=== PATIENT | male | born 1935 | race Caucasian/White ===

== ENCOUNTER 2018-05-03 13:16 | Emergency (ER) | payer MEDICARE, BC ==
[2018-05-03 13:32] VITALS: BP 149/63
[2018-05-03] MEDS ORDERED: Doxycycline 100 MG Cap PO ONE (13:41)
--- NOTE | 2018-05-03 14:50 | ER ---
SUBJECTIVE: The patient is an 82-year-old male, who has been at his normal baseline, but he found a tick on the back of his left lower leg, and he pulled it off yesterday morning. He states it is now getting red and was having some itching and some discomfort. It is not painful now. No other calf tenderness. No real swelling. No shortness of breath. No fevers. No other issues. He was seen in the clinic, and they apparently sent him to the ER for further evaluation. PAST MEDICAL HISTORY: Significant for hypothyroidism, hypertension, hyperlipidemia, osteoarthritis, impaired vision, and hip replacement. CURRENT MEDICATIONS: Include: 1. Synthroid 50 mcg p.o. daily. 2. Metoprolol 25 mg p.o. daily. 3. Lipitor 20 mg p.o. at bedtime. ALLERGIES: No allergies. SOCIAL HISTORY: No tobacco, alcohol, or drugs. REVIEW OF SYSTEMS: No fevers. No chills. No chest pain or shortness of breath. No new bowel or bladder changes. He does have the redness where he had the tick bite on his posterior left lower leg. No other issues. OBJECTIVE: Vital Signs: Stable. General: He is afebrile. No distress. Talkative, smiling. A and O x3. No respiratory distress. Good historian. Large male, appears his stated age. Extremities: Focused examination of the lower extremities shows an area of redness about quarter size to the back of the left calf area. There is no tick at this place now, the patient states he pulled it off. I do not see any foreign body. No lacerations or abrasions. It is mildly warm and mildly infected, there is no induration and no abscesses. There is nothing to mirta or I and D at this point. There is no drainage. There is not a target lesion at this point. He has full range of motion of the foot. No compartment syndrome. ASSESSMENT AND PLAN: Tick bite with infection to the left posterior lower extremity. PLAN: He was given tablet of doxycycline in the emergency room. He was given a prescription for doxycycline as well. He is advised to elevate his legs. He can apply moist warm packs. Follow up very closely and get it recheck by PCP early this next week. Fill prescription today for doxycycline, take Tylenol or ibuprofen for discomfort. Return for emergent issues. [facility] /[id number]
== END 2018-05-03 14:06 | disposition home or self-care (01) ==
LOC: DL.ED 13:16
DX: S80.862A Insect bite (nonvenomous), left lower leg, initial encounter (principal); I10 Essential (primary) hypertension; E03.9 Hypothyroidism, unspecified; Z79.899 Other long term (current) drug therapy; W57.XXXA Bitten or stung by nonvenomous insect and other nonvenomous arthropods, initial encounter
CPT/HCPCS: 36415; 87040; 99283; A9270

== ENCOUNTER 2018-06-30 05:02 | Emergency (ER) | payer MEDICARE, BC ==
[2018-06-30 04:46] VITALS: BP 159/65
--- NOTE | 2018-06-30 05:00 | EDM.PDOC ---
ED HPI GENERAL MEDICAL PROBLEM - General Chief Complaint: Lower Extremity Injury/Pain Stated Complaint: AMBULANCE-FELL Time Seen by Provider: 06/30/18 04:35 Source of Information: Reports: Patient, EMS History Limitations: Reports: No Limitations - History of Present Illness INITIAL COMMENTS - FREE TEXT/NARRATIVE: ED via [facility]. Patient reports falling when getting back to bed approximately 1am. Called neighbor around 4am. States turning and knee gave out. Recent total knee replacement on 06/28. No loss of consciousness. Denies other injury. Rates pain 01/26. On no aspirin or other blood thinners. EMS noted dressing saturated and oozing beneath. Pain mainly behind right knee Right Knee Pain Score (Numeric/FACES): 3 - Related Data Allergies Allergy/AdvReac Type Severity Reaction Status Date / Time red dye Allergy Dizziness Verified 06/30/18 04:46 Home Meds: Home Meds Levothyroxine [Synthroid] 50 mcg PO DAILY 03/08/16 [History] Metoprolol Tartrate 25 mg PO DAILY 05/03/18 [History] atorvaSTATin [Lipitor] 20 mg PO BEDTIME 05/03/18 [History] oxyCODONE 5 mg PO Q4HR PRN 06/30/18 [History] Past Medical History HEENT History: Reports: Impaired Vision Other HEENT History: wears glasses Cardiovascular History: Reports: High Cholesterol, Hypertension Respiratory History: Reports: None Gastrointestinal History: Reports: None Genitourinary History: Reports: None Neurological History: Reports: None Psychiatric History: Reports: None Endocrine/Metabolic History: Reports: Hypothyroidism Hematologic History: Reports: None Immunologic History: Reports: None Oncologic (Cancer) History: Reports: None Dermatologic History: Reports: None - Infectious Disease History Infectious Disease History: Reports: Chicken Pox - Past Surgical History Head Surgeries/Procedures: Reports: None Musculoskeletal Surgical History: Reports: Hip Replacement, Knee Replacement Social & Family History - Tobacco Use Smoking Status *Q: Never Smoker Second Hand Smoke Exposure: No - Caffeine Use Caffeine Use: Reports: Soda - Recreational Drug Use Recreational Drug Use: No Review of Systems - Review of Systems Review Of Systems: See Below Constitutional: Reports: No Symptoms Eyes: Reports: Glasses Ears: Reports: No Symptoms Nose: Reports: No Symptoms Mouth/Throat: Reports: No Symptoms Respiratory: Reports: No Symptoms Cardiovascular: Reports: No Symptoms Genitourinary: Reports: No Symptoms Musculoskeletal: Reports: Joint Pain (right knee) Skin: Reports: Wound Neurological: Reports: No Symptoms. Denies: Headache, Numbness, Seizure, Syncope ED EXAM, GENERAL - Physical Exam Exam: See Below Exam Limited By: No Limitations General Appearance: Alert, No Apparent Distress, Obese Eye Exam: Bilateral Eye: EOMI, PERRL Ears: Normal External Exam Ear Exam: Bilateral Ear: Auricle Normal Nose: Normal Inspection Throat/Mouth: Normal Inspection, Normal Voice Head: Atraumatic, Normocephalic Neck: Normal Inspection, Full Range of Motion. No: Tender Lateral, Tender Midline Respiratory/Chest: No Respiratory Distress, Lungs Clear Cardiovascular: Normal Peripheral Pulses, Regular Rate, Rhythm GI/Abdominal: Normal Bowel Sounds, Soft Back Exam: Normal Inspection Extremities: Leg Pain (right knee recent surgical incision, caesar intackt, swollen bruised. surgical dressing saturated ). No: Normal Range of Motion Neurological: Alert, Oriented, Normal Cognition Psychiatric: Normal Affect, Normal Mood Skin Exam: Warm, Ecchymosis (right knee), Wound/Incision (right anterior knee surgical incision site). No: Increased Warmth Course - Vital Signs Last Recorded V/S: Last Vital Signs Temp 98.2 F 06/30/18 04:35 Pulse 99 06/30/18 04:35 Resp 18 06/30/18 04:35 BP 159/65 H 06/30/18 04:35 Pulse Ox 93 L 06/30/18 04:35 - Orders/Labs/Meds Orders: Active Orders 24 hr Category Date Time Status EKG 12 Lead [EKG Documentation Completion] [RC] URGENT Care 06/30/18 05:46 Active Labs: Laboratory Tests 06/30/18 06/30/18 06/30/18 Range/Units 05:10 05:10 05:10 WBC 13.2 H (5.0-10.0) 10^3/uL RBC 3.94 L (4.6-6.2) 10^6/uL Hgb 12.2 L D (14.0-18.0) g/dL Hct 37.7 L (40.0-54.0) % MCV 95.7 D (80-100) fL MCH 31.0 (27.0-34.0) pg MCHC 32.4 L (33.0-35.0) g/dL Plt Count 155 (150-450) 10^3/uL Neut % (Auto) 66.1 (42.2-75.2) % Lymph % (Auto) 20.9 (20.5-50.1) % [place] % (Auto) 12.6 H (2-8) % Eos % (Auto) 0.2 L (1.0-3.0) % Baso % (Auto) 0.2 (0.0-1.0) % PT 10.8 (9.0-12.0) SEC INR 1.1 (0.9-1.2) Sodium 136 (135-145) mmol/L Potassium 4.1 (3.6-5.0) mmol/L Chloride 102 (101-111) mmol/L Carbon Dioxide 26.0 (21.0-31.0) mmol/L Anion Gap 12.1 BUN 18 (7-18) mg/dL Creatinine 0.9 (0.6-1.3) mg/dL Est Cr Clr Drug Dosing 64.21 mL/min Estimated GFR (MDRD) > 60 BUN/Creatinine Ratio 20.00 Glucose 124 H (74-105) mg/dL Calcium 8.4 (8.4-10.2) mg/dl Total Bilirubin 1.0 (0.2-1.0) mg/dL AST 115 H (10-42) IU/L ALT 18 (10-60) IU/L Alkaline Phosphatase 53 (42-121) IU/L CK-MB (CK-2) (0.4-4.7) ng/mL Troponin I 0.19 H* (0.00-0.02) ng/ml Total Protein 6.4 L (6.7-8.2) g/dl Albumin 3.1 L (3.2-5.5) g/dl Globulin 3.3 Albumin/Globulin Ratio 0.94 Blood Type Gel Antibody Screen 06/30/18 06/30/18 Range/Units 05:10 05:10 WBC (5.0-10.0) 10^3/uL RBC (4.6-6.2) 10^6/uL Hgb (14.0-18.0) g/dL Hct (40.0-54.0) % MCV (80-100) fL MCH (27.0-34.0) pg MCHC (33.0-35.0) g/dL Plt Count (150-450) 10^3/uL Neut % (Auto) (42.2-75.2) % Lymph % (Auto) (20.5-50.1) % [place] % (Auto) (2-8) % Eos % (Auto) (1.0-3.0) % Baso % (Auto) (0.0-1.0) % PT (9.0-12.0) SEC INR (0.9-1.2) Sodium (135-145) mmol/L Potassium (3.6-5.0) mmol/L Chloride (101-111) mmol/L Carbon Dioxide (21.0-31.0) mmol/L Anion Gap BUN (7-18) mg/dL Creatinine (0.6-1.3) mg/dL Est Cr Clr Drug Dosing mL/min Estimated GFR (MDRD) BUN/Creatinine Ratio Glucose (74-105) mg/dL Calcium (8.4-10.2) mg/dl Total Bilirubin (0.2-1.0) mg/dL AST (10-42) IU/L ALT (10-60) IU/L Alkaline Phosphatase (42-121) IU/L CK-MB (CK-2) 14.00 H (0.4-4.7) ng/mL Troponin I (0.00-0.02) ng/ml Total Protein (6.7-8.2) g/dl Albumin (3.2-5.5) g/dl Globulin Albumin/Globulin Ratio Blood Type A POSITIVE Gel Antibody Screen Negative Meds: Medications Discontinued Medications Generic Name Dose Route Start Last Admin Trade Name Rena PRN Reason Stop Dose Admin Hydromorphone HCl 1 mg 06/30/18 05:43 06/30/18 05:50 Dilaudid IVPUSH 06/30/18 05:44 1 mg ONETIME ONE Administration Ondansetron HCl 4 mg 06/30/18 05:43 06/30/18 05:48 Zofran IV 06/30/18 05:44 4 mg ONETIME ONE Administration - Radiology Interpretation Free Text/Narrative:: Name: JAMILA SINGER Age: 82Years M Date: 06/30/2018 SSN: -- : [id number] Study: XR KNEE 3 VIEWS Requesting Physician: FISH IZAGUIRRE Images: 2 Addl Studies: Provided Clinical History: Contrast: Contrast Medium: Contrast Amount: Contrast Method: CONFIDENTIALITY STATEMENT This report is intended only for use by the referring physician, and only in accordance with law. If you received this in error, call [phone]. Page 1 of 1 EXAM: XR Right Knee, 3 views CLINICAL HISTORY: 82 years old, male; Signs and symptoms; Other: Knee replacement sunday--fell tonite/pain TECHNIQUE: Three views of the right knee. COMPARISON: No relevant prior studies available. FINDINGS: Bones/joints: Status post total knee replacement Small suprapatellar joint effusion No acute fracture. No dislocation. Soft tissues: Unremarkable. IMPRESSION: Status - Re-Assessments/Exams Free Text/Narrative Re-Assessment/Exam: 06/30/18 05:[address] Manjeet Rodríguez. Recommendation await final radiology report, if negative trial of weight bearing, if unable, CT. If [place] then recommend follow up sooner than usual 2 week follow up. Lab results in with elevated troponin. 06/30/18 07:00, Spouse arrived, Now reports, patient might have passed out with fall or immediately after. Patient continues to report did not TX stable LRAS. Scant drainage from mid incision wound. Departure - Departure Time of Disposition: 06:55 Disposition: DC/Tfer to Acute Hospital 02 Condition: Undetermined Clinical Impression: Elevated troponin S/P total knee replacement Qualifiers: Laterality: right Qualified Code(s): Z96.651 - Presence of right artificial knee joint Fall Qualifiers: Encounter type: initial encounter Qualified Code(s): W19.XXXA - Unspecified fall, initial encounter - Discharge Information Forms: ED Department Discharge - My Orders Last 24 Hours: My Active Orders 06/30/18 05:46 EKG 12 Lead [EKG Documentation Completion] [RC] URGENT - Assessment/Plan Last 24 Hours: My Active Orders 06/30/18 05:46 EKG 12 Lead [EKG Documentation Completion] [RC] URGENT
[2018-06-30 05:38] LABS: ANION GAP 12.1; CHLORIDE,CL 102 mmol/L (101-111); SODIUM,NA 136 mmol/L (135-145)
[2018-06-30] MEDS ORDERED: Ondansetron 4 MG/2 ML SDV IV ONE (05:43)
[2018-06-30] MEDS ORDERED: HYDROmorphone 0.5 MG/0.5 ML Syringe IVPUSH ONE (05:43)
--- NOTE | 2018-07-03 09:10 | EKG ---
06/30/2018- JAMILA SINGER - FINDINGS: A 12-lead EKG shows normal sinus rhythm with ventricular bigeminy and right bundle-branch block. No significant ST elevation or ST depression noted on this 12-lead EKG. [facility] /[id number]
== END 2018-06-30 06:55 ==
LOC: DL.ED 05:02
DX: T84.89XA Other specified complication of internal orthopedic prosthetic devices, implants and grafts, initial encounter (principal); I10 Essential (primary) hypertension; E78.00 Pure hypercholesterolemia, unspecified; E03.9 Hypothyroidism, unspecified; Z96.651 Presence of right artificial knee joint; Z91.09 Other allergy status, other than to drugs and biological substances; Z79.899 Other long term (current) drug therapy; W19.XXXA Unspecified fall, initial encounter
CPT/HCPCS: 36415; 73560; 80053; 82553; 84484; 85025; 85610; 86850; 86900; 86901; 93005; 93010; 96374; 96375; 99284; 99285; J1170; J2405

== ENCOUNTER 2018-07-04 10:19 | Inpatient (IN) | payer MEDICARE, BC ==
[2018-07-04] MEDS ORDERED: Bisacodyl 10 MG Supp RECTAL PRN (14:31)
[2018-07-04] MEDS ORDERED: oxyCODONE 5 MG Tab PO PRN (14:37)
[2018-07-04] MEDS: Aspirin 325 MG Tab PO SCH (21:04)
[2018-07-04] MEDS: Acetaminophen 325 MG Tab PO PRN (21:04)
[2018-07-04] MEDS: atorvaSTATin 20 MG Tab PO SCH (21:04)
[2018-07-05] MEDS: Levothyroxine 100 MCG Tab PO SCH (06:27)
[2018-07-05] MEDS: Acetaminophen 325 MG Tab PO PRN (06:27)
[2018-07-05] MEDS: Metoprolol Tartrate 25 MG Tab PO SCH (09:39)
[2018-07-05] MEDS: Aspirin 325 MG Tab PO SCH ×2 (09:39→20:13)
[2018-07-05] MEDS: Acetaminophen 500 MG Tab PO SCH ×3 (09:40→20:13)
[2018-07-05] MEDS: Docusate Sodium 100 MG Cap PO SCH ×2 (09:46→20:12)
[2018-07-05] MEDS: atorvaSTATin 20 MG Tab PO SCH (20:12)
[2018-07-06] MEDS: Levothyroxine 100 MCG Tab PO SCH (05:19)
[2018-07-06] MEDS: Acetaminophen 500 MG Tab PO SCH ×3 (08:50→21:28)
[2018-07-06] MEDS: Docusate Sodium 100 MG Cap PO SCH ×2 (08:50→21:28)
[2018-07-06] MEDS: Metoprolol Tartrate 25 MG Tab PO SCH (08:50)
[2018-07-06] MEDS: Aspirin 325 MG Tab PO SCH ×2 (08:51→21:28)
[2018-07-06] MEDS: atorvaSTATin 20 MG Tab PO SCH (21:30)
[2018-07-07] MEDS: Levothyroxine 100 MCG Tab PO SCH (06:33)
[2018-07-07] MEDS: Acetaminophen 500 MG Tab PO SCH ×3 (08:50→20:56)
[2018-07-07] MEDS: Aspirin 325 MG Tab PO SCH ×2 (08:50→20:57)
[2018-07-07] MEDS: Docusate Sodium 100 MG Cap PO SCH ×2 (08:50→20:57)
[2018-07-07] MEDS: Metoprolol Tartrate 25 MG Tab PO SCH (08:51)
[2018-07-07] MEDS: traMADol 50 MG Tab PO PRN (20:53)
[2018-07-07] MEDS: atorvaSTATin 20 MG Tab PO SCH (20:57)
[2018-07-08] MEDS: Levothyroxine 100 MCG Tab PO SCH (05:50)
[2018-07-08] MEDS: Aspirin 325 MG Tab PO SCH ×2 (09:01→21:10)
[2018-07-08] MEDS: Docusate Sodium 100 MG Cap PO SCH ×2 (09:01→21:11)
[2018-07-08] MEDS: Metoprolol Tartrate 25 MG Tab PO SCH (09:01)
[2018-07-08] MEDS: Acetaminophen 500 MG Tab PO SCH ×3 (09:02→21:12)
[2018-07-08] MEDS: Acetaminophen 500 MG Tab PO PRN (11:38)
--- NOTE | 2018-07-08 12:21 | HP ---
REASON FOR ADMISSION TO SWING BED: 1. Status post fall with partial wound dehiscence of recent total right knee arthroplasty. 2. Referral to Physical and Occupational Therapy for strengthening and fall risk reduction. HISTORY OF PRESENT ILLNESS: Mr. Huertas is an 82-year-old gentleman who underwent total right knee arthroplasty on 06/27/2018. This was performed by Dr. Alexander Wright at [facility] in [place]. Mr. Lyle felt that he could go directly home after the surgery and did not feel he needed therapy. On the first evening home, he got up during the night to go to the bathroom and fell directly onto the right knee and sustained a partial dehiscence on the superior aspect of the incision overlying the right knee from the total right knee arthroplasty. He was transferred back to [place] and was readmitted there from 06/30/2018 until today, 07/04/2018, the day of admission to Swing Bed. The other concern that prompted his transfer to [place] was the finding of a troponin of 0.19 with an elevated CK-MB of 14.0. This raised the concern for an acute cardiac syndrome. A 12-lead EKG performed in the ER was not diagnostic. It showed a normal sinus rhythm of 94 with ventricular bigeminy and a right bundle-branch block. At that point, he was transferred back to [place]. In [place], 3 troponins were all in the negative ranges. Highest troponin there was 0.21 at that time and prior to discharge was 0.11. Mr. Huertas does have a history of atrial fibrillation. Also, during the postoperative period, he had been noted to be quite hypertensive. Internal Medicine was consulted at that time. He continues on metoprolol and aspirin. Mr. Huertas was not felt to have had an acute coronary syndrome after following evaluation. Orthopedics put on a new type of wound VAC, and he was discharged back to [place] to continue with wound care for the surgical dehiscence and to work with Physical and Occupational Therapy. PAST MEDICAL HISTORY: Osteoarthritis with recent total right knee arthroplasty. He has also had a total left hip arthroplasty as well. Hypothyroidism, morbid obesity, cerebrovascular disease, dyslipidemia, and atrial fibrillation. PAST SURGICAL HISTORY: Cholecystectomy, appendectomy, partial thyroidectomy, left cataract surgery with lens implant in 2011, and total left hip arthroplasty in 2013. SOCIAL HISTORY: Does not smoke. Drinks only occasional alcohol. He and his farmed in about 8 miles from the [place]. He is now retired. He has 2 adopted daughters and 2 grandsons. FAMILY HISTORY: His mother lived to and had some dementia. Brother also had dementia. His father of myocardial infarction. IMMUNIZATION HISTORY: 1. High-dose influenza, 10/18/2017. 2. PPV23, 11/24/2000. 3. PCV13, 07/12/2016. 4. Tdap, 09/28/2014. 5. Herpes zoster, 07/29/2009. MEDICATIONS: 1. Atorvastatin 20 mg at bedtime. 2. Metoprolol tartrate 25 mg daily. 3. Levothyroxine 100 mcg daily. 4. Aspirin EC 325 mg twice a day. ALLERGIES: Red dye. No known drug allergies. REVIEW OF SYSTEMS: He is accompanied by his . He is a pleasant gentleman, in no acute distress. He is rather hard of hearing. Does not wear hearing aids. No swallowing difficulties. No recent vision changes. Denies any chest pain or shortness of breath, although he does have some shortness of breath on exertion. No abdominal pain. No recent change in bowel or bladder habits, although he stated he was somewhat constipated following surgery. Otherwise, no other fall other than once he came home after the first admission. Weight and appetite are stable. We discussed updating his Pneumovax, and he was agreeable to this, and an order has been written for him to update the Pneumovax at the time of discharge. PHYSICAL EXAMINATION: General: He is seated comfortably in his recliner. His participates in the visit as well. Vital Signs: Blood pressure 143/65 on the left and 133/58 on the right, pulse 83, respiratory rate 20, oxygen saturation 98% on room air, and temperature 98.2. Height 5 feet 10.5 inches, weight 304 pounds or 3.2 ounces. HEENT: Unremarkable. ENT was clear. Chest: Showed clear but diminished bilateral breath sounds. Heart: Showed regular rate and rhythm. Abdomen: Obese, soft, and benign. Extremities: Showed chronic venous changes in the right lower leg. It is more swollen in the right following the surgery and fall, but the calves are soft and nontender. There are palpable peripheral pulses. Neurologic: He is intact. Examination of the right knee shows that there is a dressing in place. There is a small MADELINE PUMP in place which was not removed. IMPRESSION: An 82-year-old gentleman status post total right knee arthroplasty followed by a fall, which resulted in partial dehiscence of the superior aspect of the surgical incision. PLAN: 1. Wound care per Orthopedics. He has a small pump on the incision. This will stay in place until 07/08/2018, and an Aquacel dressing will be placed on the wound. There was a dressing sent with him for this purpose. 2. Referred to Occupational and Physical Therapy for ongoing strengthening and fall risk reduction. 3. His usual medications will be continued. 4. Hypertension by history. Blood pressures today are much better controlled. We will continue with current medications. 5. History of atrial fibrillation. Heart rate is controlled today. He continues on a beta-viola. 6. He was placed on a regular diet with Ensure twice a day for wound healing. 7. Mr. Huertas did come with a prescription for oxycodone. Both he and his asked that the order be removed as he did not wish to take the oxycodone and was fine with taking Tylenol. The oxycodone was discontinued, and the order for Tylenol will continue. 8. He has followup with Dr. Wright on 07/17/2018, at 10:30 here in [place]. 9. Code status: Full code. This was discussed with the patient and his . CONDITION AT THE TIME OF ADMISSION: Hemodynamically and neurologically stable. [facility] /[id number]
[2018-07-08] MEDS: atorvaSTATin 20 MG Tab PO SCH (21:11)
[2018-07-08] MEDS: Clotrimazole 1% Crm 30 GM Tube TOP SCH (21:18)
[2018-07-09] MEDS: Levothyroxine 100 MCG Tab PO SCH (06:11)
[2018-07-09] MEDS: Acetaminophen 500 MG Tab PO SCH ×3 (09:21→22:02)
[2018-07-09] MEDS: Metoprolol Tartrate 25 MG Tab PO SCH (09:22)
[2018-07-09] MEDS: Aspirin 325 MG Tab PO SCH ×2 (09:23→20:35)
[2018-07-09] MEDS: Docusate Sodium 100 MG Cap PO SCH ×2 (09:23→20:35)
[2018-07-09] MEDS: Clotrimazole 1% Crm 30 GM Tube TOP SCH ×2 (10:45→20:36)
[2018-07-09] MEDS: traMADol 50 MG Tab PO PRN (20:11)
[2018-07-09] MEDS: Acetaminophen 500 MG Tab PO PRN (20:34)
[2018-07-09] MEDS: atorvaSTATin 20 MG Tab PO SCH (20:36)
[2018-07-09] MEDS ORDERED: Acetaminophen/oxyCODONE 325-5 MG Tab PO PRN (22:36)
[2018-07-10] MEDS: Levothyroxine 100 MCG Tab PO SCH (05:22)
[2018-07-10] MEDS: Metoprolol Tartrate 25 MG Tab PO SCH (09:32)
[2018-07-10] MEDS: Docusate Sodium 100 MG Cap PO SCH ×2 (09:33→20:45)
[2018-07-10] MEDS: Acetaminophen 500 MG Tab PO SCH ×3 (09:33→20:44)
[2018-07-10] MEDS: Aspirin 325 MG Tab PO SCH ×2 (09:34→20:44)
[2018-07-10] MEDS: Clotrimazole 1% Crm 30 GM Tube TOP SCH ×2 (09:35→21:17)
[2018-07-10] MEDS: atorvaSTATin 20 MG Tab PO SCH (20:45)
[2018-07-10] MEDS: traMADol 50 MG Tab PO PRN (20:46)
[2018-07-11] MEDS: Levothyroxine 100 MCG Tab PO SCH (05:35)
[2018-07-11] MEDS: Aspirin 325 MG Tab PO SCH ×2 (09:32→21:05)
[2018-07-11] MEDS: Metoprolol Tartrate 25 MG Tab PO SCH (09:32)
[2018-07-11] MEDS: Acetaminophen 500 MG Tab PO SCH ×3 (09:33→21:05)
[2018-07-11] MEDS: Docusate Sodium 100 MG Cap PO SCH ×2 (09:33→21:06)
[2018-07-11] MEDS: Clotrimazole 1% Crm 30 GM Tube TOP SCH ×2 (09:35→21:10)
[2018-07-11] MEDS: atorvaSTATin 20 MG Tab PO SCH (21:05)
[2018-07-11] MEDS: traMADol 50 MG Tab PO PRN (21:06)
[2018-07-12] MEDS: Levothyroxine 100 MCG Tab PO SCH (06:51)
[2018-07-12 08:05] VITALS: BP 146/60
[2018-07-12] MEDS: Aspirin 325 MG Tab PO SCH (08:58)
[2018-07-12] MEDS: traMADol 50 MG Tab PO PRN (08:58)
[2018-07-12] MEDS: Metoprolol Tartrate 25 MG Tab PO SCH (08:59)
[2018-07-12] MEDS: Docusate Sodium 100 MG Cap PO SCH (08:59)
[2018-07-12] MEDS: Clotrimazole 1% Crm 30 GM Tube TOP SCH (09:00)
[2018-07-12] MEDS: Acetaminophen 500 MG Tab PO SCH ×2 (09:01→14:18)
[2018-07-12] MEDS: Acetaminophen 500 MG Tab PO PRN (10:27)
[2018-07-12] MEDS ORDERED: Pneumococcal Polyvalent-23 Vaccine 0.5 ML SDV IM ONE (10:58)
--- NOTE | 2018-07-12 12:25 | PCM.DCSUM1 ---
Discharge Summary - Hospital Course HPI Initial Comments: Patient s/p Right TKA. Had a fall and sustained wound dehiscence. Was managed at [facility] and transferred to our swing bed for PT/OT. Patient did well and is being discharge home. He will follow up with ortho next week. Diagnosis: Stroke: No - Discharge Data Discharge Date: 07/12/18 Discharge Disposition: Home, Self-Care 01 Condition: Good - Patient Summary/Data Consults: Consultations 07/04/18 14:45 OT Evaluation and Treatment [CONS] Routine PT Evaluation and Treatment [CONS] Routine - Patient Instructions Fluid Restriction: 1500 mL Activity: As Tolerated Notify Provider of: Fever, Increased Pain, Swelling and Redness, Nausea and/or Vomiting - Discharge Plan Prescriptions/Med Rec: Acetaminophen/oxyCODONE [Percocet 325-5 MG] 1 tab PO Q8HR PRN 5 Days #15 tablet PRN Reason: Pain traMADol [Ultram] 50 mg PO Q8H PRN 5 Days #15 tablet PRN Reason: Pain (Moderate 4-6) Home Medications: Home Meds Metoprolol Tartrate 25 mg PO DAILY 05/03/18 [History] atorvaSTATin [Lipitor] 20 mg PO BEDTIME 05/03/18 [History] Aspirin 325 mg PO BID 07/04/18 [History] Levothyroxine [Synthroid] 100 mcg PO DAILY 07/04/18 [History] Acetaminophen [Tylenol Extra Strength] 500 mg PO TID 5 Days #20 tablet 07/12/18 [Rx] Acetaminophen/oxyCODONE [Percocet 325-5 MG] 1 tab PO Q8HR PRN 5 Days #15 tablet 07/12/18 [Rx] Clotrimazole [Lotrimin AF 1% Crm] 0 gm TOP BID #1 tube 07/12/18 [Rx] traMADol [Ultram] 50 mg PO Q8H PRN 5 Days #15 tablet 07/12/18 [Rx] Patient Handouts: Wound Dehiscence, [id number], Total Knee Replacement, Care After, [id number] - General Info Functional Status: Reports: Pain Controlled - Review of Systems General: Reports: No Symptoms HEENT: Reports: No Symptoms Pulmonary: Reports: No Symptoms Cardiovascular: Reports: No Symptoms Gastrointestinal: Reports: No Symptoms Genitourinary: Reports: No Symptoms Musculoskeletal: Reports: No Symptoms Skin: Reports: No Symptoms Neurological: Reports: No Symptoms Psychiatric: Reports: No Symptoms - Patient Data Vitals - Most Recent: Last Vital Signs Temp 98.3 F 07/12/18 08:00 Pulse 64 07/12/18 08:59 Resp 20 07/12/18 08:00 BP 146/60 H 07/12/18 08:59 Pulse Ox 98 07/12/18 08:00 Weight - Most Recent: 301 lb I&O - Last 24 hours: Intake & Output 07/11/18 07/12/18 07/12/18 22:59 06:59 14:59 Intake Total 50 500 600 Balance 50 500 600 Med Orders - Current: Current Medications Acetaminophen (Tylenol Extra Strength) 500 mg PO TID [facility] Last Admin: 07/11/18 21:05 Dose: 500 mg Acetaminophen (Tylenol Extra Strength) 500 mg PO Q6H PRN PRN Reason: Pain/Fever Last Admin: 07/12/18 10:27 Dose: 500 mg Aspirin (Aspirin) 325 mg PO BID [facility] Last Admin: 07/12/18 08:58 Dose: 325 mg Atorvastatin Calcium (Lipitor) 20 mg PO BEDTIME [facility] Last Admin: 07/11/18 21:05 Dose: 20 mg Bisacodyl (Dulcolax) 10 mg RECTAL DAILY PRN PRN Reason: Constipation Clotrimazole (Lotrimin Af 1% Crm) 0 gm TOP BID [facility] Last Admin: 07/12/18 09:00 Dose: 1 applic Docusate Sodium (Colace) 100 mg PO BID [facility] Last Admin: 07/12/18 08:59 Dose: 100 mg Levothyroxine Sodium (Synthroid) 100 mcg PO DAILY@0600 [facility] Last Admin: 07/12/18 06:51 Dose: 100 mcg Metoprolol Tartrate (Lopressor) 25 mg PO DAILY [facility] Last Admin: 07/12/18 08:59 Dose: 25 mg Oxycodone/Acetaminophen (Percocet 325-5 Mg) 1 tab PO Q6H PRN PRN Reason: Pain Last Admin: 07/09/18 22:55 Dose: 1 tab Senna/Docusate Sodium (Senna Plus) 1 tab PO BID [facility] Last Admin: 07/12/18 08:59 Dose: 1 tab Tramadol HCl (Ultram) 50 mg PO Q6H PRN PRN Reason: Pain (moderate 4-6) Last Admin: 07/12/18 08:58 Dose: 50 mg Discontinued Medications Acetaminophen (Tylenol) 650 mg PO Q4H PRN PRN Reason: Pain (mild 1-3 )/fever Last Admin: 07/05/18 06:27 Dose: 650 mg Oxycodone HCl (Oxycodone) 5 mg PO Q4HR PRN PRN Reason: Pain Pneumococcal Polyvalent Vaccine (Pneumovax 23) 0.5 ml IM .ONCE ONE Stop: 07/12/18 10:59 Last Admin: 07/12/18 11:43 Dose: Not Given - Exam General: Reports: Alert, Oriented HEENT: Reports: Pupils Equal, Pupils Reactive, EOMI, Mucous Membr. Moist/[place] Neck: Reports: Supple Lungs: Reports: Clear to Auscultation, Normal Respiratory Effort Cardiovascular: Reports: Regular Rate, Regular Rhythm GI/Abdominal Exam: Normal Bowel Sounds, Soft, Non-Tender, No Organomegaly, No Distention, No Abnormal Bruit, No Mass, Pelvis Stable (Male) Exam: No Hernia, Normal Inspection, Normal Prostate, Circumcised Rectal (Males) Exam: Normal Exam, Normal Rectal Tone, Prostate Normal Back Exam: Reports: Normal Inspection, Full Range of Motion Extremities: Normal Inspection, Normal Range of Motion, Non-Tender, No Pedal Edema, Normal Capillary Refill Skin: Reports: Warm, Dry, Intact Wound/Incisions: Reports: [facility] Neurological: Reports: No New Focal Deficit Psy/Mental Status: Reports: Alert, Normal Affect, Normal Mood
== END 2018-07-12 13:45 | disposition home or self-care (01) | DRG 949 ==
LOC: DL.MS 13:46 → UNDOADMIN 13:46 → DL.MS 14:31
PROVIDERS: ADMIT Internal Medicine; ATTEND Internal Medicine
DX: T81.31XD Disruption of external operation (surgical) wound, not elsewhere classified, subsequent encounter (principal); Z68.41 Body mass index [BMI] 40.0-44.9, adult; Y83.8 Other surgical procedures as the cause of abnormal reaction of the patient, or of later complication, without mention of misadventure at the time of the procedure; Z96.651 Presence of right artificial knee joint; W18.30XD Fall on same level, unspecified, subsequent encounter; I48.91 Unspecified atrial fibrillation; E89.0 Postprocedural hypothyroidism; I10 Essential (primary) hypertension; E66.01 Morbid (severe) obesity due to excess calories; I67.9 Cerebrovascular disease, unspecified; E78.5 Hyperlipidemia, unspecified; Z79.899 Other long term (current) drug therapy; Z79.82 Long term (current) use of aspirin
CPT/HCPCS: 97110-GO; 97110-GP; 97116-GP; 97163-GP; 97165-GO; 97530-GO; A9270-GY

== ENCOUNTER 2021-03-07 12:55 | Emergency (ER) | payer MEDICARE, BC ==
[2021-03-07 12:52] VITALS: PULSE 59
[2021-03-07 13:31] LABS: ANION GAP 14.1 mEq/L (7-13); CHLORIDE,CL 104 mmol/L (98-107); SODIUM,NA 138 mmol/L (136-145)
--- NOTE | 2021-03-07 13:34 | EDM.PDOC ---
ED HPI GENERAL MEDICAL PROBLEM - General Chief Complaint: General Stated Complaint: AMBULANCE Time Seen by Provider: 03/07/21 13:20 Source of Information: Reports: Patient, EMS History Limitations: Reports: No Limitations - History of Present Illness INITIAL COMMENTS - FREE TEXT/NARRATIVE: This 85 yo male patient was brought to the ED by [facility] due to a ground level fall. The patient reports he got up this morning and suddenly fell to the ground. The patient reports he has had similar symptoms over the past 1 1/2 weeks. The patient reports he his the left side of his forehead. The patient reports he has been having very strong smelling urine. The patient reports he took all of his medications about 60 minutes prior to arrival in the ED. The patient denies any additional symptoms or concerns. Duration: Week(s):, Intermittent Location: Reports: Generalized Quality: Reports: Other Severity: Moderate Improves with: Reports: None Worsens with: Reports: None Context: Reports: Other Associated Symptoms: Reports: Syncope Left Head Pain Score (Numeric/FACES): 2 - Related Data Allergies Allergy/AdvReac Type Severity Reaction Status Date / Time red dye Allergy Dizziness Verified 03/07/21 13:04 Home Meds: Home Meds Metoprolol Tartrate 25 mg PO DAILY 05/03/18 [History] atorvaSTATin [Lipitor] 20 mg PO BEDTIME 05/03/18 [History] Aspirin 325 mg PO BID 07/04/18 [History] Levothyroxine [Synthroid] 100 mcg PO DAILY 07/04/18 [History] Past Medical History HEENT History: Reports: Cataract, Hard of Hearing, Impaired Vision Other HEENT History: wears glasses Cardiovascular History: Reports: Afib, High Cholesterol, Hypertension Respiratory History: Reports: None Gastrointestinal History: Reports: None Genitourinary History: Reports: None Musculoskeletal History: Reports: None Neurological History: Reports: None Psychiatric History: Reports: None Endocrine/Metabolic History: Reports: Hypothyroidism, Obesity/BMI 30+ Hematologic History: Reports: None Immunologic History: Reports: None Oncologic (Cancer) History: Reports: None Dermatologic History: Reports: None - Infectious Disease History Infectious Disease History: Reports: Shingles - Past Surgical History Head Surgeries/Procedures: Reports: None HEENT Surgical History: Reports: Adenoidectomy, Cataract Surgery, Tonsillectomy Cardiovascular Surgical History: Reports: None GI Surgical History: Reports: Appendectomy, Cholecystectomy Male Surgical History: Reports: None Endocrine Surgical History: Reports: Thyroidectomy Musculoskeletal Surgical History: Reports: Hip Replacement, Knee Replacement Social & Family History - Family History Family Medical History: No Pertinent Family History - Tobacco Use Tobacco Use Status *Q: Never Tobacco User Second Hand Smoke Exposure: No - Caffeine Use Caffeine Use: Reports: Soda - Recreational Drug Use Recreational Drug Use: No ED ROS GENERAL - Review of Systems Review Of Systems: Comprehensive ROS is negative, except as noted in HPI. ED EXAM, GENERAL - Physical Exam Exam: See Below Exam Limited By: No Limitations General Appearance: Alert, WD/WN, Mild Distress, Obese Eye Exam: Bilateral Eye: EOMI, Normal Inspection, PERRL Ears: Normal External Exam Nose: Normal Inspection, Normal Mucosa, No Blood Throat/Mouth: Normal Inspection, Normal Lips, Normal Teeth, Normal Gums, Normal Oropharynx, Normal Voice, No Airway Compromise Head: Other (Contusion to the left forehead) Neck: Normal Inspection, Supple, Non-Tender, Full Range of Motion Respiratory/Chest: No Respiratory Distress, Lungs Clear, Normal Breath Sounds, No Accessory Muscle Use, Chest Non-Tender Cardiovascular: Normal Peripheral Pulses, Regular Rate, Rhythm, No Edema, No Gallop, No JVD, No Murmur, No Rub GI/Abdominal: Normal Bowel Sounds, Soft, Non-Tender, No Organomegaly, No Distention, No Abnormal Bruit, No Mass (Male) Exam: Deferred Rectal (Males) Exam: Deferred Back Exam: Normal Inspection, Full Range of Motion, NT Extremities: Normal Inspection, Normal Range of Motion, Non-Tender, Normal Capillary Refill #1 Interpretation EKG Date: 03/07/21 Time: 13:00 Rhythm: NSR Rate (Beats/Min): 60 [place]: Normal P-Wave: Present QRS: RBBB ST-T: Normal QT: Normal Comparison: No Change Course - Vital Signs Last Recorded V/S: Last Vital Signs Temp 36.2 C 03/07/21 12:51 Pulse 59 L 03/07/21 12:51 Resp 20 03/07/21 14:14 BP 112/41 L 03/07/21 14:14 Pulse Ox 98 03/07/21 12:51 Orthostatic Blood Pressure [ 132/66 Supine] - Orders/Labs/Meds Orders: Active Orders 24 hr Category Date Time Status EKG Documentation Completion [RC] STAT Care 03/07/21 12:57 Active CULTURE URINE [RM] Urgent Lab 03/07/21 14:03 Received Sodium Chloride 0.9% [Normal Saline] 1,000 ml Med 03/07/21 15:26 Ordered IV .BOLUS Medication Orders Sodium Chloride (Normal Saline) 1,000 mls @ 999 mls/hr IV .BOLUS ONE Stop: 03/07/21 16:26 Last Infusion: 03/07/21 15:40 Dose: 400 mls/hr Documented by: Admin: 03/07/21 15:38 Dose: 999 mls/hr Documented by: REE Labs: Laboratory Tests 03/07/21 03/07/21 03/07/21 Range/Units 13:00 13:00 14:03 WBC 7.0 (5.0-10.0) 10^3/uL RBC 4.98 (4.6-6.2) 10^6/uL Hgb 15.4 (14.0-18.0) g/dL Hct 47.3 (40.0-54.0) % MCV 95.0 (80-100) fL MCH 30.9 (27.0-34.0) pg MCHC 32.6 L (33.0-35.0) g/dL Plt Count 161 (150-450) 10^3/uL Neut % (Auto) 74.2 (42.2-75.2) % Lymph % (Auto) 15.9 L (20.5-50.1) % Owen % (Auto) 9.7 H (2-8) % Eos % (Auto) 0.1 L (1.0-3.0) % Baso % (Auto) 0.1 (0.0-1.0) % Sodium 138 (136-145) mmol/L Potassium 4.1 (3.5-5.1) mmol/L Chloride 104 (98-107) mmol/L Carbon Dioxide 24 (21-32) mmol/L Anion Gap 14.1 H (7-13) mEq/L BUN 21 H (7-18) mg/dL Creatinine 1.24 (0.70-1.30) mg/dL Est Cr Clr Drug Dosing 44.15 mL/min Estimated GFR (MDRD) 55 BUN/Creatinine Ratio 16.9 (No establ ref range) Glucose 111 H (70-99) mg/dL Calcium 8.3 L (8.5-10.1) mg/dL Total Bilirubin 0.7 (0.2-1.0) mg/dL AST 37 (15-37) U/L ALT 21 (16-63) U/L Alkaline Phosphatase 90 (46-116) U/L Troponin I < 0.017 (0.000-0.056) ng/mL Total Protein 6.8 (6.4-8.2) g/dL Albumin 2.7 L (3.4-5.0) g/dL Globulin 4.1 Albumin/Globulin Ratio 0.66 Urine Color Dark yellow (YELLOW) Urine Appearance Cloudy (CLEAR) Urine pH 5.5 (5.0-9.0) Ur Specific [place] >= 1.030 (1.005-1.030) Urine Protein 100 H (NEGATIVE) Urine Glucose (UA) Negative (NEGATIVE) Urine Ketones Negative (NEGATIVE) Urine Occult Blood Negative (NEGATIVE) Urine Nitrite Negative (NEGATIVE) Urine Bilirubin Small H (NEGATIVE) Urine Urobilinogen 0.2 (0.2-1.0) mg/dL Ur Leukocyte Esterase Small H (NEGATIVE) Urine RBC 5-10 H /HPF Urine WBC 75-100 H (0-5/HPF) /HPF Ur Epithelial Cells Moderate H (NOT SEEN) /HPF Amorphous Sediment Few (NOT SEEN) /HPF Urine Bacteria Many H (0-FEW/HPF) /HPF Urine Mucus Many H (NOT SEEN) /LPF Meds: Medications Generic Name Dose Route Start Last Admin Trade Name Freq PRN Reason Stop Dose Admin Sodium Chloride 1,000 mls @ 999 mls/hr 03/07/21 15:26 03/07/21 15:40 Normal Saline IV 03/07/21 16:26 400 mls/hr .BOLUS ONE Infusion Discontinued Medications Generic Name Dose Route Start Last Admin Trade Name Freq PRN Reason Stop Dose Admin Ceftriaxone Sodium 1 gm/ 50 mls @ 100 mls/hr 03/07/21 15:27 03/07/21 15:38 Sodium Chloride IV 03/07/21 15:56 100 mls/hr ONETIME ONE Administration Departure - Departure Time of Disposition: 16:02 Disposition: Home, Self-Care 01 Condition: Fair Clinical Impression: UTI (urinary tract infection) Qualifiers: Urinary tract infection type: site unspecified Hematuria presence: without hematuria Qualified Code(s): N39.0 - Urinary tract infection, site not specified - Discharge Information *PRESCRIPTION DRUG MONITORING PROGRAM REVIEWED*: Not Applicable *COPY OF PRESCRIPTION DRUG MONITORING REPORT IN PATIENT TERI: Not Applicable Instructions: Urinary Tract Infection, Adult, [id number] Forms: ED Department Discharge Care Plan Goals: The patient was advised of the examination, lab, EKG and CT results during the visit. The patient was given IV fluids and IV Rocephin while in the ED. The patient was discharged with a script for Keflex (500 mg) to take 1 by mouth 3 times per day for 7 days. The patient was encouraged to increase his oral fluid intake. If the patient has any additional symptoms or concerns, the patient should either return to the emergency department or visit his primary care facility. Sepsis Event Note (ED) - Evaluation Sepsis Screening Result: No Definite Risk - Focused Exam Vital Signs: Vital Signs Temp Pulse Resp BP Pulse Ox 03/07/21 14:14 20 112/41 L 03/07/21 12:51 36.2 C 59 L 18 103/84 98 - My Orders Last 24 Hours: My Active Orders 03/07/21 12:57 EKG Documentation Completion [RC] STAT 03/07/21 14:03 CULTURE URINE [RM] Urgent 03/07/21 15:26 Sodium Chloride 0.9% [Normal Saline] 1,000 ml IV .BOLUS - Assessment/Plan Last 24 Hours: My Active Orders 03/07/21 12:57 EKG Documentation Completion [RC] STAT 03/07/21 14:03 CULTURE URINE [RM] Urgent 03/07/21 15:26 Sodium Chloride 0.9% [Normal Saline] 1,000 ml IV .BOLUS
--- NOTE | 2021-03-07 13:35 | CR ---
EXAMINATION: Chest 1V Frontal SEX: Male AGE: 85 years CLINICAL HISTORY: 85-year-old male injured in ground-level fall. Interpretation (AP portable chest): Negative. Normal cardiac silhouette (size and configuration) unchanged since comparison 08 July 2019. pcas leads. No pulmonary vascular congestion, alveolar edema or dependent new pleural fluid accumulation. Chronic arthritic degenerative changes right shoulder. Tracheobronchial airway unremarkable and normal mediastinal width. Old pleural pericardial scarring left base No new lung mass or hilar lymphadenopathy. No focal lobar infiltrate/atelectasis. No peripheral "groundglass" interstitial lung densities. No rib fracture, lung contusion or pneumothorax or pneumomediastinum.
[2021-03-07 14:16] VITALS: BP 112/41
--- NOTE | 2021-03-07 14:35 | CT ---
EXAMINATION: Head wo Cont SEX: Male AGE: 85 years CLINICAL HISTORY: 85-year-old male who experienced episode of SYNCOPE and ground-level fall. 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 Scan technique: Volume acquisition of data emergency unenhanced CT scan of the head and brain obtained with the patient lying supine on the Siemens multislice scanner [place], [place]. All data archived in the PACS system for storage, reformatting axial/sagittal/coronal planes and study (bone/brain windows). Interpretation: Abnormal. 1. Periventricular, multi-infarct ischemic changes which appear to increasingly involve the right cerebral hemisphere (compared to 08 July 2019) but without current signs of ipsilateral edema or mass effect on the surrounding sulci or the underlying ventricular system. No hydrocephalus. No midline shift. No acute intracranial bleed. 2. Generalized atrophy. Physiologic midline pineal and symmetric choroid plexus calcifications. 3. No new supratentorial or posterior fossa mass lesion. 4. Small extracranial left frontal soft tissue bruise or hematoma. 5. Uniformly thick bony calvarium. Symmetric clear pneumatization of the paranasal and mastoid sinuses. Nasal septum is straight and midline. No foreign body, skull fracture, underlying brain contusion or epidural/subdural hematoma. 6. No sign of acute intracerebral, intraventricular or subarachnoid bleed. 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 No new signs of intracranial mass, hydrocephalus or bleed.
[2021-03-07] MEDS ORDERED: Sodium Chloride 0.9% 1,000 ML IV ONE (15:26)
[2021-03-07] MEDS ORDERED: cefTRIAXone 1 GM in Sodium Chloride 0.9% 50 ML IV ONE (15:27)
== END 2021-03-07 16:36 | disposition home or self-care (01) ==
LOC: DL.ED 12:55
DX: S00.83XA Contusion of other part of head, initial encounter (principal); N39.0 Urinary tract infection, site not specified; I48.91 Unspecified atrial fibrillation; E78.00 Pure hypercholesterolemia, unspecified; I10 Essential (primary) hypertension; E03.9 Hypothyroidism, unspecified; E66.9 Obesity, unspecified; Z68.42 Body mass index [BMI] 45.0-49.9, adult; Z91.018 Allergy to other foods; Z79.82 Long term (current) use of aspirin; W18.30XA Fall on same level, unspecified, initial encounter
CPT/HCPCS: 36415; 70450; 71045; 80053; 81001; 84484; 85025; 87086; 87088; 87186; 93005; 93010; 96365; 99284; 99285-25; J0696; J7030

== ENCOUNTER 2021-09-14 07:18 | Emergency (ER) | payer MEDICARE, BC ==
[2021-09-14 07:47] VITALS: PULSE 81
--- NOTE | 2021-09-14 07:55 | EDM.PDOC ---
"ED HPI GENERAL MEDICAL PROBLEM - General Chief Complaint: Genitourinary Problem Stated Complaint: BLADDER INFECTION Time Seen by Provider: 09/14/21 07:35 Source of Information: Reports: Patient, Family () History Limitations: Reports: Altered Mental Status - History of Present Illness INITIAL COMMENTS - FREE TEXT/NARRATIVE: This 86 yo male patient was brought to the ED by his . The patient reports he does not know why he is here. The patient reports he was brought to the ED from his home in [place] by his . The patient's reports that the patient started to have coordination problems 2 days ago. The reports the patient had difficulties talking yesterday and difficulties using his left hand yesterday. The patient's reports the patient has had similar symptoms in the past due to a bladder infection. The patient has not been seen in the clinic for these symptoms. Duration: Day(s):, Constant Location: Reports: Generalized Quality: Reports: Other Severity: Moderate Improves with: Reports: None Worsens with: Reports: None Context: Reports: Other Associated Symptoms: Reports: Other - Related Data Allergies Allergy/AdvReac Type Severity Reaction Status Date / Time red dye Allergy Dizziness Verified 03/07/21 13:04 Home Meds: Home Meds Metoprolol Tartrate 25 mg PO DAILY 05/03/18 [History] atorvaSTATin [Lipitor] 20 mg PO BEDTIME 05/03/18 [History] Levothyroxine [Synthroid] 100 mcg PO DAILY 07/04/18 [History] Aspirin [Aspirin EC] 81 mg PO ASDIRECTED 09/14/21 [History] Past Medical History HEENT History: Reports: Cataract, Hard of Hearing, Impaired Vision Other HEENT History: wears glasses Cardiovascular History: Reports: Afib, High Cholesterol, Hypertension Respiratory History: Reports: None Gastrointestinal History: Reports: None Genitourinary History: Reports: None Neurological History: Reports: None Psychiatric History: Reports: None Endocrine/Metabolic History: Reports: Hypothyroidism, Obesity/BMI 30+ Hematologic History: Reports: None Immunologic History: Reports: None Oncologic (Cancer) History: Reports: None Dermatologic History: Reports: None - Infectious Disease History Infectious Disease History: Reports: Shingles - Past Surgical History Head Surgeries/Procedures: Reports: None HEENT Surgical History: Reports: Adenoidectomy, Cataract Surgery, Tonsillectomy Cardiovascular Surgical History: Reports: None GI Surgical History: Reports: Appendectomy, Cholecystectomy Male Surgical History: Reports: None Endocrine Surgical History: Reports: Thyroidectomy Musculoskeletal Surgical History: Reports: Hip Replacement, Knee Replacement Social & Family History - Family History Family Medical History: No Pertinent Family History - Caffeine Use Caffeine Use: Reports: None ED ROS GENERAL - Review of Systems Review Of Systems: Comprehensive ROS is negative, except as noted in HPI. ED EXAM, GENERAL - Physical Exam Exam: See Below Exam Limited By: No Limitations General Appearance: Alert, WD/WN, Moderate Distress, Obese Eye Exam: Bilateral Eye: EOMI, Normal Inspection, PERRL Ears: Normal External Exam, Normal Canal, Hearing Grossly Normal, Normal TMs Nose: Normal Inspection, Normal Mucosa, No Blood Throat/Mouth: Normal Inspection, Normal Lips, Normal Teeth, Normal Gums, Normal Oropharynx, Normal Voice, No Airway Compromise Head: Atraumatic, Normocephalic Neck: Normal Inspection, Supple, Non-Tender, Full Range of Motion Respiratory/Chest: Lungs Clear, No Accessory Muscle Use, Chest Non-Tender, De creased Breath Sounds Cardiovascular: Normal Peripheral Pulses, Regular Rate, Rhythm, No Gallop, No JVD, No Murmur, No Rub GI/Abdominal: Normal Bowel Sounds, Soft, Non-Tender, No Organomegaly, No Distention, No Abnormal Bruit, No Mass, Other (obese) (Male) Exam: Deferred Rectal (Males) Exam: Deferred Back Exam: Normal Inspection, Full Range of Motion, NT Extremities: Normal Range of Motion, Normal Capillary Refill, Pedal Edema (bilateral ) Neurological: Alert, Oriented Psychiatric: Normal Affect, Normal Mood Skin Exam: Warm, Dry, Intact, Normal Color, No Rash Lymphatic: No Adenopathy #1 Interpretation EKG Date: 09/14/21 Time: 07:45 Rhythm: NSR Rate (Beats/Min): 78 [place]: Normal P-Wave: Present QRS: RBBB ST-T: Normal QT: Normal Comparison: No Change Course - Vital Signs Last Recorded V/S: Last Vital Signs Temp 98.1 F 09/14/21 07:42 Pulse 81 09/14/21 07:42 Resp 28 H 09/14/21 07:42 BP 137/53 L 09/14/21 08:03 Pulse Ox 95 09/14/21 07:42 - Orders/Labs/Meds Orders: Active Orders 24 hr Category Date Time Status Blood Glucose Check, Bedside [RC] ONETIME Care 09/14/21 07:33 Active Blood Glucose Check, Bedside [RC] ONETIME Care 09/14/21 08:05 Active CULTURE URINE [RM] Urgent Lab 09/14/21 07:27 Received UA W/MICROSCOPIC [URIN] Urgent Lab 09/14/21 07:27 Results Labs: Laboratory Tests 09/14/21 09/14/21 09/14/21 Range/Units 07:27 07:36 07:39 WBC (5.0-10.0) 10^3/uL RBC (4.6-6.2) 10^6/uL Hgb (14.0-18.0) g/dL Hct (40.0-54.0) % MCV (80-100) fL MCH (27.0-34.0) pg MCHC (33.0-35.0) g/dL Plt Count (150-450) 10^3/uL Neut % (Auto) (42.2-75.2) % Lymph % (Auto) (20.5-50.1) % Lyman % (Auto) (2-8) % Eos % (Auto) (1.0-3.0) % Baso % (Auto) (0.0-1.0) % PT (9.0-12.0) SEC INR (0.9-1.2) Sodium (136-145) mmol/L Potassium (3.5-5.1) mmol/L Chloride (98-107) mmol/L Carbon Dioxide (21-32) mmol/L Anion Gap (7-13) mEq/L BUN (7-18) mg/dL Creatinine (0.70-1.30) mg/dL Est Cr Clr Drug Dosing mL/min Estimated GFR (MDRD) BUN/Creatinine Ratio (No establ ref range) Glucose (70-99) mg/dL POC Glucose 113 H (70-99) mg/dL Lactic Acid (0.4-2.0) mmol/L Calcium (8.5-10.1) mg/dL Total Bilirubin (0.2-1.0) mg/dL AST (15-37) U/L ALT (16-63) U/L Alkaline Phosphatase (46-116) U/L Troponin I High Sens (<=76) pg/mL B-Natriuretic Peptide (0-100) pg/ml Total Protein (6.4-8.2) g/dL Albumin (3.4-5.0) g/dL Globulin Albumin/Globulin Ratio Urine Color Yellow (YELLOW) Urine Appearance Clear (CLEAR) Urine pH 5.5 (5.0-9.0) Ur Specific Benedict >= 1.030 (1.005-1.030) Urine Protein Negative (NEGATIVE) Urine Glucose (UA) Negative (NEGATIVE) Urine Ketones Trace H (NEGATIVE) Urine Occult Blood Small H (NEGATIVE) Urine Nitrite Negative (NEGATIVE) Urine Bilirubin Negative (NEGATIVE) Urine Urobilinogen 0.2 (0.2-1.0) mg/dL Ur Leukocyte Esterase Small H (NEGATIVE) Influenza Type A RNA Negative (NEGATIVE) Influenza Type B RNA Negative (NEGATIVE) SARS-CoV-2 RNA (ELEAZAR) Negative (NEGATIVE) 09/14/21 09/14/21 09/14/21 Range/Units 07:41 07:41 07:41 WBC 10.7 H (5.0-10.0) 10^3/uL RBC 4.77 (4.6-6.2) 10^6/uL Hgb 15.3 (14.0-18.0) g/dL Hct 44.8 (40.0-54.0) % MCV 93.9 (80-100) fL MCH 32.1 (27.0-34.0) pg MCHC 34.2 (33.0-35.0) g/dL Plt Count 170 (150-450) 10^3/uL Neut % (Auto) 52.1 (42.2-75.2) % Lymph % (Auto) 38.3 (20.5-50.1) % Lyman % (Auto) 7.2 (2-8) % Eos % (Auto) 2.2 (1.0-3.0) % Baso % (Auto) 0.2 (0.0-1.0) % PT (9.0-12.0) SEC INR (0.9-1.2) Sodium 142 (136-145) mmol/L Potassium 3.7 (3.5-5.1) mmol/L Chloride 103 (98-107) mmol/L Carbon Dioxide 29 (21-32) mmol/L Anion Gap 13.7 H (7-13) mEq/L BUN 14 (7-18) mg/dL Creatinine 1.05 (0.70-1.30) mg/dL Est Cr Clr Drug Dosing 46.34 mL/min Estimated GFR (MDRD) > 60 BUN/Creatinine Ratio 13.3 (No establ ref range) Glucose 113 H (70-99) mg/dL POC Glucose (70-99) mg/dL Lactic Acid 1.2 (0.4-2.0) mmol/L Calcium 9.1 (8.5-10.1) mg/dL Total Bilirubin 0.8 (0.2-1.0) mg/dL AST 19 (15-37) U/L ALT 20 (16-63) U/L Alkaline Phosphatase 103 (46-116) U/L Troponin I High Sens 19 (<=76) pg/mL B-Natriuretic Peptide (0-100) pg/ml Total Protein 7.6 (6.4-8.2) g/dL Albumin 3.2 L (3.4-5.0) g/dL Globulin 4.4 Albumin/Globulin Ratio 0.73 Urine Color (YELLOW) Urine Appearance (CLEAR) Urine pH (5.0-9.0) Ur Specific Benedict (1.005-1.030) Urine Protein (NEGATIVE) Urine Glucose (UA) (NEGATIVE) Urine Ketones (NEGATIVE) Urine Occult Blood (NEGATIVE) Urine Nitrite (NEGATIVE) Urine Bilirubin (NEGATIVE) Urine Urobilinogen (0.2-1.0) mg/dL Ur Leukocyte Esterase (NEGATIVE) Influenza Type A RNA (NEGATIVE) Influenza Type B RNA (NEGATIVE) SARS-CoV-2 RNA (ELEAZAR) (NEGATIVE) 09/14/21 09/14/21 Range/Units 07:41 07:41 WBC (5.0-10.0) 10^3/uL RBC (4.6-6.2) 10^6/uL Hgb (14.0-18.0) g/dL Hct (40.0-54.0) % MCV (80-100) fL MCH (27.0-34.0) pg MCHC (33.0-35.0) g/dL Plt Count (150-450) 10^3/uL Neut % (Auto) (42.2-75.2) % Lymph % (Auto) (20.5-50.1) % Lyman % (Auto) (2-8) % Eos % (Auto) (1.0-3.0) % Baso % (Auto) (0.0-1.0) % PT 11.4 (9.0-12.0) SEC INR 1.1 (0.9-1.2) Sodium (136-145) mmol/L Potassium (3.5-5.1) mmol/L Chloride (98-107) mmol/L Carbon Dioxide (21-32) mmol/L Anion Gap (7-13) mEq/L BUN (7-18) mg/dL Creatinine (0.70-1.30) mg/dL Est Cr Clr Drug Dosing mL/min Estimated GFR (MDRD) BUN/Creatinine Ratio (No establ ref range) Glucose (70-99) mg/dL POC Glucose (70-99) mg/dL Lactic Acid (0.4-2.0) mmol/L Calcium (8.5-10.1) mg/dL Total Bilirubin (0.2-1.0) mg/dL AST (15-37) U/L ALT (16-63) U/L Alkaline Phosphatase (46-116) U/L Troponin I High Sens (<=76) pg/mL B-Natriuretic Peptide 79 (0-100) pg/ml Total Protein (6.4-8.2) g/dL Albumin (3.4-5.0) g/dL Globulin Albumin/Globulin Ratio Urine Color (YELLOW) Urine Appearance (CLEAR) Urine pH (5.0-9.0) Ur Specific Benedict (1.005-1.030) Urine Protein (NEGATIVE) Urine Glucose (UA) (NEGATIVE) Urine Ketones (NEGATIVE) Urine Occult Blood (NEGATIVE) Urine Nitrite (NEGATIVE) Urine Bilirubin (NEGATIVE) Urine Urobilinogen (0.2-1.0) mg/dL Ur Leukocyte Esterase (NEGATIVE) Influenza Type A RNA (NEGATIVE) Influenza Type B RNA (NEGATIVE) SARS-CoV-2 RNA (ELEAZAR) (NEGATIVE) - Radiology Interpretation Free Text/Narrative:: [facility] [place] [facility] Final Radiology Report Call: [phone] assistance Online chat: [email or web address] Name: JAMILA SINGER Age: 86Years M Date: 09/14/2021 SSN: -- : [id number] Study: CT HEAD WO CONT Requesting Physician: Micah Lund Images: [id number] Addl Studies: Provided Clinical History: Altered mentation Contrast: Without Contrast Medium: Contrast Amount: Contrast Method: Page 1 of 2 PROCEDURE INFORMATION: Exam: CT Head Without Contrast Exam date and time: 09/14/2021 8:25 AM Age: 86 years old Clinical indication: Altered mental status/memory loss; Confusion or disorientation; Additional info: Altered mentation TECHNIQUE: Imaging protocol: Computed tomography of the head without contrast. Radiation optimization: All CT scans at this facility use at least one of these dose optimization techniques: automated exposure control; mA and/or kV adjustment per patient size (includes targeted exams where dose is matched to clinical indication); or iterative reconstruction. Other technique: STROKE PROTOCOL was implemented. COMPARISON: CT Head wo Cont 03/07/2021 1:49 PM FINDINGS: Brain: Acute hemorrhage in the right frontal lobe. The hemorrhage measures 2.9 x 2.8 x 2.3 cm. Minimal to no mass effect. Again noted is patchy decreased attenuation in the periventricular white matter. Generalized volume loss with sulcal prominence. No abnormal extra-axial fluid collections. Cerebral ventricles: Again noted is mild prominence secondary to volume loss. No acute changes. Paranasal sinuses: Visualized sinuses are unremarkable. No fluid levels. Mastoid air cells: Visualized mastoid air cells are well aerated. Bones/joints: Unremarkable. No acute fracture. Soft tissues: Unremarkable. IMPRESSION: 1. Acute hemorrhage in the right frontal lobe. 2. Chronic microvascular disease. 3. Generalized cerebral atrophy. JAMILA SINGER | Final Radiology Report CONFIDENTIALITY STATEMENT This report is intended only for use by the referring physician, and only in accordance with law. If you received this in error, call [phone]. Page 2 of 2 ASSESSMENT: ASPECTS ([facility] Stroke Program Early CT Score) is 10. Thank you for allowing us to participate in the care of your patient. Dictated and Authenticated by: Ulysses Deluca MD 09/14/2021 8:39 AM Central Time ([place] & [place]) Departure - Departure Time of Disposition: 08:57 Disposition: DC/Tfer to Acute Hospital 02 Condition: Serious Clinical Impression: Acute intracerebral hemorrhage - Discharge Information *PRESCRIPTION DRUG MONITORING PROGRAM REVIEWED*: Not Applicable *COPY OF PRESCRIPTION DRUG MONITORING REPORT IN PATIENT TERI: Not Applicable Forms: Interfacility Transfer EMTALA Care Plan Goals: Discussed the patient's history, examination, lab, EKG and CT results with Dr. Witt and Dr. Mireles ([facility] in [place]). Dr. Mireles accepted the patient for continued evaluation and management through [facility] in [place]. The patient will be transported by [facility] with transport to the airport by [facility]. Sepsis Event Note (ED) - Focused Exam Vital Signs: Vital Signs Temp Pulse Resp BP Pulse Ox 09/14/21 08:03 137/53 L 09/14/21 07:42 98.1 F 81 28 H 95 - My Orders Last 24 Hours: My Active Orders 09/14/21 07:27 CULTURE URINE [RM] Urgent UA W/MICROSCOPIC [URIN] Urgent 09/14/21 07:33 Blood Glucose Check, Bedside [RC] ONETIME 09/14/21 08:05 Blood Glucose Check, Bedside [RC] ONETIME - Assessment/Plan Last 24 Hours: My Active Orders 09/14/21 07:27 CULTURE URINE [RM] Urgent UA W/MICROSCOPIC [URIN] Urgent 09/14/21 07:33 Blood Glucose Check, Bedside [RC] ONETIME 09/14/21 08:05 Blood Glucose Check, Bedside [RC] ONETIME"
[2021-09-14 08:03] VITALS: BP 137/53
[2021-09-14 08:12] LABS: ANION GAP 13.7 mEq/L (7-13); CHLORIDE,CL 103 mmol/L (98-107); SODIUM,NA 142 mmol/L (136-145)
[2021-09-14 08:28] LABS: CORONAVIRUS COVID-19 NAA NEGATIVE (NEGATIVE)
--- NOTE | 2021-09-14 08:39 | CT ---
PROCEDURE INFORMATION: Exam: CT Head Without Contrast Exam date and time: 09/14/2021 8:25 AM Age: 86 years old Clinical indication: Altered mental status/memory loss; Confusion or disorientation; Additional info: Altered mentation TECHNIQUE: Imaging protocol: Computed tomography of the head without contrast. Radiation optimization: All CT scans at this facility use at least one of these dose optimization techniques: automated exposure control; mA and/or kV adjustment per patient size (includes targeted exams where dose is matched to clinical indication); or iterative reconstruction. Other technique: STROKE PROTOCOL was implemented. COMPARISON: CT Head wo Cont 03/07/2021 1:49 PM FINDINGS: Brain: Acute hemorrhage in the right frontal lobe. The hemorrhage measures 2.9 x 2.8 x 2.3 cm. Minimal to no mass effect. Again noted is patchy decreased attenuation in the periventricular white matter. Generalized volume loss with sulcal prominence. No abnormal extra-axial fluid collections. Cerebral ventricles: Again noted is mild prominence secondary to volume loss. No acute changes. Paranasal sinuses: Visualized sinuses are unremarkable. No fluid levels. Mastoid air cells: Visualized mastoid air cells are well aerated. Bones/joints: Unremarkable. No acute fracture. Soft tissues: Unremarkable. IMPRESSION: 1. Acute hemorrhage in the right frontal lobe. 2. Chronic microvascular disease. 3. Generalized cerebral atrophy. ASSESSMENT: ASPECTS ([facility] Stroke Program Early CT Score) is 10.
== END 2021-09-14 09:33 ==
LOC: DL.ED 07:18
DX: I61.9 Nontraumatic intracerebral hemorrhage, unspecified (principal); I48.91 Unspecified atrial fibrillation; E78.00 Pure hypercholesterolemia, unspecified; I10 Essential (primary) hypertension; E03.9 Hypothyroidism, unspecified; I45.10 Unspecified right bundle-branch block; E66.9 Obesity, unspecified; Z68.42 Body mass index [BMI] 45.0-49.9, adult; Z91.048 Other nonmedicinal substance allergy status; Z79.82 Long term (current) use of aspirin; Z79.899 Other long term (current) drug therapy; Z20.822 Contact with and (suspected) exposure to COVID-19
CPT/HCPCS: 0240U; 36415; 70450; 80053; 81001; 82947; 83605; 83880; 84484; 85025; 85610; 87086; 87088; 87186; 93005; 99285-25

== ENCOUNTER 2022-07-14 11:42 | Emergency (ER) | payer MEDICARE, BC ==
[2022-07-14 14:52] VITALS: BP 138/57; PULSE 64
[2022-07-14] MEDS ORDERED: Pantoprazole 40 MG Vial IVPUSH ONE (16:27)
[2022-07-14 16:48] LABS: PTT,PARTIAL THROMBOPLSTIN TIME 25.2 SEC (22.0-34.0)
[2022-07-14 16:49] LABS: ANION GAP 15.8 mEq/L (7-13); CHLORIDE,CL 103 mmol/L (98-107); SODIUM,NA 142 mmol/L (136-145)
[2022-07-14 17:05] LABS: ESTIMATED GFR 43 mL/min (>=60)
[2022-07-14] MEDS ORDERED: Nitrofurantoin Monohydrate/Macrocrystalline 100 MG Cap PO ONE (18:23)
== END 2022-07-14 18:37 | disposition home or self-care (01) ==
LOC: DL.ED 11:42
DX: N39.0 Urinary tract infection, site not specified (principal); I48.91 Unspecified atrial fibrillation; E78.00 Pure hypercholesterolemia, unspecified; I10 Essential (primary) hypertension; E03.9 Hypothyroidism, unspecified; E66.9 Obesity, unspecified; Z68.30 Body mass index [BMI] 30.0-30.9, adult; Z91.041 Radiographic dye allergy status; Z79.899 Other long term (current) drug therapy; Z20.822 Contact with and (suspected) exposure to COVID-19
CPT/HCPCS: 36415; 80053; 81001; 82150; 82272; 83605; 83690; 83735; 85025; 85610; 85730; 86140; 87086; 87088; 87186; 96374; 99283; 99284; A9270; C9113; U0002

== ENCOUNTER 2023-11-01 14:22 | Inpatient (IN) | payer MEDICARE, BC ==
[2023-11-01 14:53] LABS: BASOPHILS PERCENT AUTO 0.1 % (0.0-1.0); HEMATOCRIT 44.8 % (40.0-54.0); HEMOGLOBIN 14.5 g/dL (14.0-18.0); LYMPHOCYTES PERCENT AUTO 39.7 % (20.5-50.1); MEAN CORPUSCULAR HEMOGLOBIN 31.4 pg (27.0-34.0); MEAN CORPUSCULAR HGB CONC 32.4 g/dL (33.0-35.0); MONOCYTES PERCENT AUTO 8.1 % (2-8); NEUTROPHILS PERCENT AUTO 50.1 % (42.2-75.2); PLATELET COUNT,PLT 173 10^3/uL (150-450); RED BLOOD CELL COUNT 4.62 10^6/uL (4.6-6.2); WHITE BLOOD CELL COUNT,WBC 10.3 10^3/uL (5.0-10.0)
[2023-11-01 15:12] LABS: B-TYPE NATRIURETIC PEPTIDE,BNP 132 pg/ml (0-100)
[2023-11-01 15:13] LABS: LACTIC ACID 1.2 mmol/L (0.4-2.0)
[2023-11-01] MEDS: Sodium Chloride 0.9% 10 ML Syringe FLUSH PRN (15:14)
[2023-11-01 15:15] LABS: ALANINE AMINOTRANSFERASE,ALT 14 U/L (16-63); ALBUMIN 2.8 g/dL (3.4-5.0); ALKALINE PHOSPHATASE 91 U/L (46-116); ANION GAP 6.9 mEq/L (7-13); ASPARTATE AMNIOTRANSFERASE,AST 13 U/L (15-37); BILIRUBIN TOTAL 0.4 mg/dL (0.2-1.0); BLOOD UREA NITROGEN,BUN 20 mg/dL (7-18); BUN/CREATININE RATIO 20.2 (No establ ref range); C-REACTIVE PROTEIN < 0.50 ng/dL (<=0.50); CALCIUM 8.7 mg/dL (8.5-10.1); CARBON DIOXIDE,CO2 30 mmol/L (21-32); CHLORIDE,CL 106 mmol/L (98-107); CREATININE 0.99 mg/dL (0.70-1.30); EST CRCL DRUG DOSING (CG) 50.59 mL/min; ESTIMATED GFR 73 mL/min (>=60); GLUCOSE RANDOM 121 mg/dL (70-99); MAGNESIUM 1.7 mg/dL (1.8-2.4); POTASSIUM,K 3.9 mmol/L (3.5-5.1); PROTEIN TOTAL,TP 6.8 g/dL (6.4-8.2); SODIUM,NA 139 mmol/L (136-145); TSH ULTRASENSITIVE 1.85 uIU/mL (0.36-3.74)
[2023-11-01 15:24] LABS: CORONAVIRUS COVID-19 NAA NEGATIVE (NEGATIVE); INFLUENZA A NAA NEGATIVE (NEGATIVE); INFLUENZA B NAA NEGATIVE (NEGATIVE)
[2023-11-01] MEDS ORDERED: Sodium Chloride 0.9% 1,000 ML IV ONE (15:24)
[2023-11-01 15:36] LABS: APPEARANCE,URINE CLEAR (CLEAR); BILIRUBIN,URINE NEGATIVE (NEGATIVE); COLOR,URINE YELLOW (YELLOW); GLUCOSE,URINE NEGATIVE (NEGATIVE); KETONES,URINE NEGATIVE (NEGATIVE); LEUKOCYTE ESTERASE,URINE SMALL (NEGATIVE); NITRITE,URINE NEGATIVE (NEGATIVE); OCCULT BLOOD,URINE SMALL (NEGATIVE); PH,URINE 5.5 (5.0-9.0); PROTEIN,URINE NEGATIVE (NEGATIVE); UROBILINOGEN,URINE 0.2 mg/dL (0.2-1.0)
[2023-11-01 15:45] LABS: AMORPHOUS SEDIMENT,URINE FEW /HPF (NOT SEEN); BACTERIA,URINE RARE /HPF (0-FEW/HPF); EPITHELIAL CELLS,URINE RARE /HPF (NOT SEEN); MUCUS,URINE MODERATE /LPF (NOT SEEN); RBC,URINE 0-5 /HPF (0-5)
[2023-11-01] MEDS ORDERED: cefTRIAXone 2 GM Vial IVPUSH ONE (16:05)
[2023-11-01] MEDS ORDERED: Magnesium Hydroxide 400 MG/5 ML Susp 30 ML Cup PO PRN (18:28)
[2023-11-01] MEDS ORDERED: hydrALAZINE 20 MG/ML SDV IVPUSH PRN (18:28)
[2023-11-01] MEDS ORDERED: Metoprolol Tartrate 5 MG/5 ML SDV IVPUSH PRN (18:28)
[2023-11-01] MEDS ORDERED: Naloxone 2 MG/2 ML Syringe IVPUSH PRN (18:28)
[2023-11-01] MEDS ORDERED: HYDROmorphone 0.5 MG/0.5 ML Syringe IVPUSH PRN (18:28)
[2023-11-01] MEDS ORDERED: Albuterol/Ipratropium 3.0-0.5 MG/3 ML Neb Soln NEB PRN (18:28)
[2023-11-01] MEDS ORDERED: Sennosides/Docusate Sodium 50-8.6 MG Tab PO PRN (18:28)
[2023-11-01] MEDS ORDERED: Ondansetron 4 MG/2 ML SDV IVPUSH PRN (18:28)
[2023-11-01] MEDS ORDERED: Polyethylene Glycol 3350 Powder 17 GM Packet PO PRN (18:28)
[2023-11-01] MEDS ORDERED: Magnesium Sulfate/Water 2 GM in Premix Bag 1 BAG IV ONE ×2 (18:48→21:00)
[2023-11-01] MEDS ORDERED: Nystatin Topical Powder 60 GM Bottle TOP PRN (18:49)
[2023-11-01] MEDS ORDERED: Furosemide 40 MG/4 ML VIAL IVPUSH ONE ×2 (18:51→21:00)
[2023-11-01] MEDS ORDERED: Aspirin 81 MG Tab.EC PO ONE ×2 (18:52→21:00)
[2023-11-01] MEDS: Acetaminophen 325 MG Tab PO PRN (21:16)
[2023-11-01] MEDS: Melatonin 3 MG Tab PO PRN (22:33)
[2023-11-02] MEDS ORDERED: LORazepam 2 MG/ML SDV IVPUSH ONE (00:58)
[2023-11-02] MEDS ORDERED: Ziprasidone Mesylate 20 MG Vial IM PRN (00:59)
[2023-11-02 06:31] LABS: BASOPHILS PERCENT AUTO 0.2 % (0.0-1.0); EOSINOPHILS PERCENT AUTO 1.9 % (1.0-3.0); HEMATOCRIT 43.1 % (40.0-54.0); HEMOGLOBIN 14.2 g/dL (14.0-18.0); LYMPHOCYTES PERCENT AUTO 35.4 % (20.5-50.1); MEAN CORPUSCULAR HEMOGLOBIN 31.6 pg (27.0-34.0); MEAN CORPUSCULAR HGB CONC 32.9 g/dL (33.0-35.0); MEAN CORPUSCULAR VOLUME 95.8 fL (80-100); MONOCYTES PERCENT AUTO 7.8 % (2-8); NEUTROPHILS PERCENT AUTO 54.7 % (42.2-75.2); PLATELET COUNT,PLT 172 10^3/uL (150-450); WHITE BLOOD CELL COUNT,WBC 9.5 10^3/uL (5.0-10.0)
[2023-11-02 06:50] LABS: ALANINE AMINOTRANSFERASE,ALT 16 U/L (16-63); ALBUMIN 2.8 g/dL (3.4-5.0); ALKALINE PHOSPHATASE 86 U/L (46-116); ANION GAP 9.6 mEq/L (7-13); ASPARTATE AMNIOTRANSFERASE,AST 16 U/L (15-37); BILIRUBIN TOTAL 0.6 mg/dL (0.2-1.0); BLOOD UREA NITROGEN,BUN 16 mg/dL (7-18); CALCIUM 8.4 mg/dL (8.5-10.1); CARBON DIOXIDE,CO2 29 mmol/L (21-32); CHLORIDE,CL 103 mmol/L (98-107); EST CRCL DRUG DOSING (CG) 50.08 mL/min; GLUCOSE RANDOM 121 mg/dL (70-99); MAGNESIUM 1.7 mg/dL (1.8-2.4); POTASSIUM,K 3.6 mmol/L (3.5-5.1); PROTEIN TOTAL,TP 6.7 g/dL (6.4-8.2); SODIUM,NA 138 mmol/L (136-145)
[2023-11-02 06:54] LABS: A/G RATIO 0.72; C-REACTIVE PROTEIN < 0.50 ng/dL (<=0.50); ESTIMATED GFR 72 mL/min (>=60)
[2023-11-02] MEDS: Sodium Chloride 0.9% 10 ML Syringe FLUSH PRN (08:39)
[2023-11-02] MEDS: Aspirin 81 MG Tab.EC PO SCH (08:39)
[2023-11-02] MEDS ORDERED: cefTRIAXone 1 GM Vial IVPUSH SCH (09:00)
[2023-11-02] MEDS ORDERED: Magnesium Sulfate/Water 2 GM in Premix Bag 1 BAG IV ONE ×2 (09:26→13:00)
[2023-11-02] MEDS: Acetaminophen 325 MG Tab PO PRN ×2 (17:36→23:19)
[2023-11-02] MEDS: Melatonin 3 MG Tab PO PRN (23:19)
[2023-11-03] MEDS: Metoprolol Tartrate 25 MG Tab PO SCH ×3 (01:26→21:28)
[2023-11-03] MEDS: Mupirocin Oint 22 GM Tube TOP SCH ×3 (01:27→21:28)
[2023-11-03] MEDS: Levothyroxine 100 MCG Tab PO SCH (05:43)
[2023-11-03 05:52] LABS: BASOPHILS PERCENT AUTO 0.2 % (0.0-1.0); EOSINOPHILS PERCENT AUTO 2.9 % (1.0-3.0); HEMATOCRIT 44.2 % (40.0-54.0); HEMOGLOBIN 14.6 g/dL (14.0-18.0); LYMPHOCYTES PERCENT AUTO 41.1 % (20.5-50.1); MEAN CORPUSCULAR HEMOGLOBIN 31.3 pg (27.0-34.0); MEAN CORPUSCULAR VOLUME 94.6 fL (80-100); MONOCYTES PERCENT AUTO 7.8 % (2-8); PLATELET COUNT,PLT 184 10^3/uL (150-450); RED BLOOD CELL COUNT 4.67 10^6/uL (4.6-6.2); WHITE BLOOD CELL COUNT,WBC 9.1 10^3/uL (5.0-10.0)
[2023-11-03 06:13] LABS: ALBUMIN 2.8 g/dL (3.4-5.0); ANION GAP 9.7 mEq/L (7-13); BILIRUBIN TOTAL 0.6 mg/dL (0.2-1.0); CALCIUM 8.6 mg/dL (8.5-10.1); CREATININE 0.94 mg/dL (0.70-1.30); EST CRCL DRUG DOSING (CG) 53.28 mL/min; MAGNESIUM 2.1 mg/dL (1.8-2.4); POTASSIUM,K 3.7 mmol/L (3.5-5.1); PROTEIN TOTAL,TP 6.6 g/dL (6.4-8.2)
[2023-11-03 06:19] LABS: A/G RATIO 0.74
[2023-11-03] MEDS: amLODIPine 5 MG Tab PO SCH (09:00)
[2023-11-03] MEDS: Escitalopram 10 MG Tab PO SCH (09:01)
[2023-11-03] MEDS: Aspirin 81 MG Tab.EC PO SCH (09:02)
[2023-11-03] MEDS: Cholecalciferol (Vitamin D3) 25 MCG Tab PO SCH (10:17)
[2023-11-03] MEDS: Melatonin 3 MG Tab PO PRN (19:49)
[2023-11-03] MEDS: Acetaminophen 325 MG Tab PO PRN (23:11)
[2023-11-04] MEDS: Acetaminophen 325 MG Tab PO PRN ×2 (04:52→09:24)
[2023-11-04] MEDS: Levothyroxine 100 MCG Tab PO SCH ×2 (04:52→05:47)
[2023-11-04 06:00] LABS: BASOPHILS PERCENT AUTO 0.1 % (0.0-1.0); EOSINOPHILS PERCENT AUTO 3.5 % (1.0-3.0); HEMATOCRIT 41.7 % (40.0-54.0); HEMOGLOBIN 13.7 g/dL (14.0-18.0); LYMPHOCYTES PERCENT AUTO 39.1 % (20.5-50.1); MEAN CORPUSCULAR HEMOGLOBIN 31.4 pg (27.0-34.0); MEAN CORPUSCULAR HGB CONC 32.9 g/dL (33.0-35.0); MEAN CORPUSCULAR VOLUME 95.4 fL (80-100); MONOCYTES PERCENT AUTO 9.6 % (2-8); NEUTROPHILS PERCENT AUTO 47.7 % (42.2-75.2); PLATELET COUNT,PLT 172 10^3/uL (150-450); RED BLOOD CELL COUNT 4.37 10^6/uL (4.6-6.2); WHITE BLOOD CELL COUNT,WBC 6.8 10^3/uL (5.0-10.0)
[2023-11-04 06:22] LABS: ALBUMIN 2.5 g/dL (3.4-5.0); ANION GAP 7.7 mEq/L (7-13); BILIRUBIN TOTAL 0.7 mg/dL (0.2-1.0); BUN/CREATININE RATIO 17.2 (No establ ref range); CALCIUM 8.4 mg/dL (8.5-10.1); CREATININE 0.93 mg/dL (0.70-1.30); EST CRCL DRUG DOSING (CG) 53.85 mL/min; MAGNESIUM 1.8 mg/dL (1.8-2.4); POTASSIUM,K 3.7 mmol/L (3.5-5.1)
[2023-11-04 06:25] LABS: A/G RATIO 0.71
[2023-11-04] MEDS: Mupirocin Oint 22 GM Tube TOP SCH ×2 (08:49→20:49)
[2023-11-04] MEDS: amLODIPine 5 MG Tab PO SCH (08:50)
[2023-11-04] MEDS: Metoprolol Tartrate 25 MG Tab PO SCH ×2 (08:50→20:24)
[2023-11-04] MEDS: Aspirin 81 MG Tab.EC PO SCH (08:50)
[2023-11-04] MEDS: Cholecalciferol (Vitamin D3) 25 MCG Tab PO SCH (08:50)
[2023-11-04] MEDS: Escitalopram 10 MG Tab PO SCH (08:51)
[2023-11-04] MEDS ORDERED: oxyCODONE ER 20 MG TAB.ER PO ONE (09:43)
[2023-11-04] MEDS ORDERED: oxyCODONE ER 10 MG TAB.ER PO SCH (21:00)
[2023-11-05] MEDS: Levothyroxine 100 MCG Tab PO SCH (06:03)
[2023-11-05 06:19] LABS: BASOPHILS PERCENT AUTO 0.3 % (0.0-1.0); EOSINOPHILS PERCENT AUTO 2.8 % (1.0-3.0); HEMATOCRIT 44.5 % (40.0-54.0); HEMOGLOBIN 14.7 g/dL (14.0-18.0); LYMPHOCYTES PERCENT AUTO 37.9 % (20.5-50.1); MEAN CORPUSCULAR HEMOGLOBIN 31.3 pg (27.0-34.0); MEAN CORPUSCULAR VOLUME 94.9 fL (80-100); MONOCYTES PERCENT AUTO 9.6 % (2-8); NEUTROPHILS PERCENT AUTO 49.4 % (42.2-75.2); PLATELET COUNT,PLT 178 10^3/uL (150-450); RED BLOOD CELL COUNT 4.69 10^6/uL (4.6-6.2); WHITE BLOOD CELL COUNT,WBC 7.8 10^3/uL (5.0-10.0)
[2023-11-05 06:38] LABS: ALBUMIN 2.8 g/dL (3.4-5.0); BILIRUBIN TOTAL 0.7 mg/dL (0.2-1.0); BUN/CREATININE RATIO 16.8 (No establ ref range); CALCIUM 8.7 mg/dL (8.5-10.1); CREATININE 0.95 mg/dL (0.70-1.30); EST CRCL DRUG DOSING (CG) 52.71 mL/min; MAGNESIUM 1.7 mg/dL (1.8-2.4); PROTEIN TOTAL,TP 6.8 g/dL (6.4-8.2)
[2023-11-05 06:41] LABS: A/G RATIO 0.7
[2023-11-05] MEDS: Aspirin 81 MG Tab.EC PO SCH (09:20)
[2023-11-05] MEDS: amLODIPine 5 MG Tab PO SCH (09:20)
[2023-11-05] MEDS: Cholecalciferol (Vitamin D3) 25 MCG Tab PO SCH (09:20)
[2023-11-05] MEDS: Escitalopram 10 MG Tab PO SCH (09:22)
[2023-11-05] MEDS: Metoprolol Tartrate 25 MG Tab PO SCH (09:23)
[2023-11-05] MEDS: Mupirocin Oint 22 GM Tube TOP SCH (09:24)
[2023-11-05] MEDS ORDERED: Magnesium Sulfate/Water 2 GM in Premix Bag 1 BAG IV ONE (10:08)
[2023-11-05] MEDS ORDERED: Magnesium Oxide 400 MG Tab PO ONE (11:44)
[2023-11-05 12:28] VITALS: BP 140/60; PULSE 61
== END 2023-11-05 13:10 | disposition home or self-care (01) | DRG 689 ==
LOC: DL.ED 14:22 → DL.MS 16:05 → DL.ED 16:22
PROVIDERS: ADMIT Internal Medicine; ATTEND Internal Medicine
DX: R41.82 Altered mental status, unspecified (principal); N39.0 Urinary tract infection, site not specified; G93.41 Metabolic encephalopathy; B37.89 Other sites of candidiasis; Z68.41 Body mass index [BMI] 40.0-44.9, adult; E78.5 Hyperlipidemia, unspecified; E66.9 Obesity, unspecified; I10 Essential (primary) hypertension; Z91.048 Other nonmedicinal substance allergy status; E03.9 Hypothyroidism, unspecified; Z79.82 Long term (current) use of aspirin; Z20.822 Contact with and (suspected) exposure to COVID-19; I48.0 Paroxysmal atrial fibrillation; Z96.651 Presence of right artificial knee joint; E83.42 Hypomagnesemia; I65.22 Occlusion and stenosis of left carotid artery; R32 Unspecified urinary incontinence; E66.01 Morbid (severe) obesity due to excess calories; R73.9 Hyperglycemia, unspecified; Z66 Do not resuscitate; I25.10 Atherosclerotic heart disease of native coronary artery without angina pectoris; E78.00 Pure hypercholesterolemia, unspecified; I48.91 Unspecified atrial fibrillation; Z90.49 Acquired absence of other specified parts of digestive tract; Z79.899 Other long term (current) drug therapy; Z86.73 Personal history of transient ischemic attack (TIA), and cerebral infarction without residual deficits; Z79.890 Hormone replacement therapy; Z91.041 Radiographic dye allergy status; Z98.49 Cataract extraction status, unspecified eye; Z98.890 Other specified postprocedural states
CPT/HCPCS: 0240U; 36415; 70450; 70551; 80053; 81001; 82140; 82306; 82550; 83605; 83735; 83880; 84439; 84443; 85025; 86140; 87086; 93880; 96360; 97161; 97165; 97530; 99285; A9270-GY; J0696; J1940; J2060; J3475; J3486; J3490; J7030

== ENCOUNTER 2024-06-23 09:56 | Emergency (ER) | payer MEDICARE, BC ==
[2024-06-23 10:12] VITALS: PULSE 64
[2024-06-23 10:28] LABS: BASOPHILS PERCENT AUTO 0.1 % (0.0-1.0); EOSINOPHILS PERCENT AUTO 0.6 % (1.0-3.0); HEMATOCRIT 48.1 % (40.0-54.0); LYMPHOCYTES PERCENT AUTO 23.5 % (20.5-50.1); MEAN CORPUSCULAR HEMOGLOBIN 31.4 pg (27.0-34.0); MEAN CORPUSCULAR HGB CONC 33.3 g/dL (33.0-35.0); MEAN CORPUSCULAR VOLUME 94.5 fL (80-100); MONOCYTES PERCENT AUTO 10.8 % (2-8); PLATELET COUNT,PLT 175 10^3/uL (150-450); RED BLOOD CELL COUNT 5.09 10^6/uL (4.6-6.2); WHITE BLOOD CELL COUNT,WBC 13.4 10^3/uL (5.0-10.0)
[2024-06-23 10:45] LABS: ALANINE AMINOTRANSFERASE,ALT 20 U/L (16-63); ALBUMIN 3.2 g/dL (3.4-5.0); ALKALINE PHOSPHATASE 114 U/L (46-116); ASPARTATE AMNIOTRANSFERASE,AST 29 U/L (15-37); BLOOD UREA NITROGEN,BUN 15 mg/dL (7-18); CALCIUM 9.4 mg/dL (8.5-10.1); CARBON DIOXIDE,CO2 27 mmol/L (21-32); CHLORIDE,CL 104 mmol/L (98-107); CREATININE 1.15 mg/dL (0.70-1.30); GLUCOSE RANDOM 106 mg/dL (70-99); MAGNESIUM 1.5 mg/dL (1.8-2.4); PROTEIN TOTAL,TP 7.1 g/dL (6.4-8.2); SODIUM,NA 140 mmol/L (136-145)
[2024-06-23 10:47] LABS: A/G RATIO 0.82; ESTIMATED GFR 61 mL/min (>=60); ETHANOL BLOOD MEDICAL < 3 mg/dL (0)
[2024-06-23 10:49] LABS: B-TYPE NATRIURETIC PEPTIDE,BNP 142 pg/ml (0-100)
[2024-06-23 10:49] LABS: BILIRUBIN,URINE NEGATIVE (NEGATIVE); COLOR,URINE YELLOW (YELLOW); GLUCOSE,URINE NEGATIVE (NEGATIVE); KETONES,URINE TRACE (NEGATIVE); LEUKOCYTE ESTERASE,URINE SMALL (NEGATIVE); NITRITE,URINE NEGATIVE (NEGATIVE); OCCULT BLOOD,URINE SMALL (NEGATIVE); PROTEIN,URINE NEGATIVE (NEGATIVE); UROBILINOGEN,URINE 0.2 mg/dL (0.2-1.0)
[2024-06-23 10:51] LABS: APPEARANCE,URINE SLIGHTLY CLOUDY (CLEAR)
[2024-06-23 10:53] LABS: AMPHETAMINES,URINE NEGATIVE (NEGATIVE); BARBITURATES,URINE NEGATIVE (NEGATIVE); BENZODIAZEPINE,URINE NEGATIVE (NEGATIVE); MDMA (ECSTASY), URINE NEGATIVE (NEGATIVE); METHADONE,URINE NEGATIVE (NEGATIVE); METHAMPHETAMINES,URINE NEGATIVE (NEGATIVE); OPIATES,URINE NEGATIVE (NEGATIVE); OXYCODONE,URINE NEGATIVE (NEGATIVE); PHENCYCLIDINE,URINE NEGATIVE (NEGATIVE); TCA,URINE NEGATIVE (NEGATIVE)
[2024-06-23 11:03] LABS: BACTERIA,URINE FEW /HPF (0-FEW/HPF); EPITHELIAL CELLS,URINE FEW /HPF (NOT SEEN); MUCUS,URINE MODERATE /LPF (NOT SEEN); RBC,URINE 0-5 /HPF (0-5)
[2024-06-23 11:59] VITALS: BP 154/63
[2024-06-23] MEDS: Magnesium Sulfate/Water 2 GM in Premix Bag 1 BAG IV ONE (12:56)
== END 2024-06-23 13:24 | disposition home or self-care (01) ==
LOC: DL.ED 09:56
DX: R40.4 Transient alteration of awareness (principal); E83.42 Hypomagnesemia; I10 Essential (primary) hypertension; E78.00 Pure hypercholesterolemia, unspecified; E03.9 Hypothyroidism, unspecified; E66.9 Obesity, unspecified; Z90.49 Acquired absence of other specified parts of digestive tract; Z79.890 Hormone replacement therapy; Z79.899 Other long term (current) drug therapy; Z79.2 Long term (current) use of antibiotics; Z91.041 Radiographic dye allergy status
CPT/HCPCS: 36415; 70450; 71045; 80053; 80305-QW; 80307; 81001; 82947; 83735; 83880; 84484; 85025; 93005; 93010; 99285